=== PATIENT | male | born 1940 | race Caucasian/White ===

== ENCOUNTER → 2019-03-22 11:39 | Outpatient (CLI) | payer MEDICARE, OTHER, SELFPAY | PROVIDERS: Visit Provider Physician Assistant | DX: L02.01 Cutaneous abscess of face (principal) | CPT/HCPCS: 87070; 87077; 87147; 87186; 87205 ==

== ENCOUNTER → 2019-05-31 18:21 | Outpatient (ROUT) | payer MEDICARE, OTHER, SELFPAY | PROVIDERS: Visit Provider Internal Medicine | DX: L73.8 Other specified follicular disorders (principal) | CPT/HCPCS: 87070; 87075; 87077; 87147; 87186; 87205 ==

== ENCOUNTER → 2019-11-07 07:14 | Outpatient (CLI) | payer MEDICARE, OTHER, SELFPAY ==
[2019-11-07 07:50] LABS: Add Manual Diff / Slide Review NO; Basophils Absolute Auto 0 /uL (0-100); Basophils Percent Auto 0.8 % (0-2); Eosinophils Absolute Auto 200 /uL (0-450); Eosinophils Percent Auto 3.2 % (2-4); Hematocrit 44.9 % (41-53); Hemoglobin 15.3 g/dL (13.5-17.5); Lymphocytes Absolute Auto 1900 /uL (1100-4500); Lymphocytes Percent Auto 37.2 % (25-40); Mean Corpuscular HGB Conc 34.1 % (30-36); Mean Corpuscular Hemoglobin 34.2 PG (26-34); Mean Corpuscular Volume 100.3 fL (80-100); Monocytes Absolute Auto 600 /uL (0-900); Monocytes Percent Auto 10.6 % (3-14); Neutrophils Absolute Auto 2500 /uL (1500-7000); Neutrophils Percent Auto 48.2 % (50-75); Platelet Count 215 X10^3/uL (150-400); Red Blood Cell Count 4.47 X10^6/uL (4.5-5.9); Red Cell Distribution Width 14.2 % (11.6-14.8); White Blood Cell Count 5.2 X10^3/uL (4.5-11.0)
[2019-11-07 08:25] LABS: Alanine Aminotransferase 33 IU/L (<50); Albumin 4.2 g/dL (3.5-5.0); Albumin Globulin Ratio 1.4 (1.0-2.8); Alkaline Phosphatase 73 U/L (38-126); Aspartate Aminotransferase 40 IU/L (17-59); BUN Creatinine Ratio 15.8 (6-22); Bilirubin Total 0.7 mg/dL (0.2-1.3); Blood Urea Nitrogen 19 mg/dL (9-20); Calcium 9.7 mg/dL (8.4-10.2); Carbon Dioxide 26 mmol/L (22-32); Chloride 104 mmol/L (98-107); Cholesterol 206 mg/dL (140-199); Estimated Glomerular Filt Rate 58.3 mL/min (>60); Glucose 111 mg/dL (80-110); HDL Cholesterol 52 mg/dL (40-60); HEMOLYSIS < 15 (0-50); LDL Cholesterol Calculated 125 mg/dL (<100); Potassium 4.6 mmol/L (3.4-5.1); Sodium 141 mmol/L (137-145); Total Protein 7.2 g/dL (6.3-8.2); Triglycerides 143 mg/dL (35-150)
[2019-11-07 08:43] LABS: Appearance Urine UA CLEAR; Bilirubin Urine UA NEGATIVE (NEGATIVE); Color Urine UA YELLOW; Glucose Urine UA NEGATIVE (Negative); Ketones Urine UA NEGATIVE (NEGATIVE); Leukocyte Esterase Urine UA NEGATIVE (NEGATIVE); Nitrite Urine UA NEGATIVE (Negative); Occult Blood Urine UA NEGATIVE (Negative); Protein Urine UA NEGATIVE (Negative); Specific Gravity Urine UA 1.025 (1.000-1.035); Urobilinogen Urine UA 0.2 E.U./dL (0.2); pH Urine UA 5.5 (4.5-8.0)
[2019-11-07 08:51] LABS: Bacteria Urine Occasional (0-1); Mucus Urine 1+ (Negative); RBC Urine 0-1/HPF (0-5/HPF); WBC Urine 0-1/HPF (0-5/HPF)
[2019-11-07 08:53] LABS: Thyroid Stimulating Hormone 3.73 uIU/mL (0.47-4.68)
== END ==
PROVIDERS: PCP Internal Medicine; Referring Provider Internal Medicine; Visit Provider Internal Medicine
DX: Z00.00 Encounter for general adult medical examination without abnormal findings (principal); L73.8 Other specified follicular disorders; L02.91 Cutaneous abscess, unspecified; E78.5 Hyperlipidemia, unspecified; R53.81 Other malaise
CPT/HCPCS: 36415; 80053; 80061; 81001; 84443; 85025

== ENCOUNTER → 2020-05-21 11:12 | Outpatient (CLI) | payer MEDICARE, OTHER, SELFPAY ==
[2020-05-21 12:38] LABS: BUN Creatinine Ratio 18.6 (6-22); Blood Urea Nitrogen 22 mg/dL (9-20); Calcium 9.7 mg/dL (8.4-10.2); Carbon Dioxide 29 mmol/L (22-32); Chloride 101 mmol/L (98-107); Estimated Glomerular Filt Rate 59.2 mL/min (>60); Glucose 92 mg/dL (80-110); HEMOLYSIS < 15 (0-50); Potassium 5.2 mmol/L (3.4-5.1); Sodium 137 mmol/L (137-145)
== END ==
PROVIDERS: PCP Internal Medicine; Referring Provider Internal Medicine; Visit Provider Internal Medicine
DX: H61.23 Impacted cerumen, bilateral (principal)
CPT/HCPCS: 36415; 80048

== ENCOUNTER 2022-09-17 11:04 | Emergency (ER) | payer MEDICARE, OTHER, SELFPAY ==
[2022-09-17] VITALS (16 sets, daily range): BP systolic 122–184; BP diastolic 67–92; PULSE 53–77; RESP 14; TEMP 36.3; O2SAT 94–99; BMI 24.3
--- NOTE | 2022-09-17 11:24 | DI.RAD.S_ITS ---
PROCEDURE: XR CHEST 1V INDICATIONS: Possible stroke TECHNIQUE: One view of the chest was acquired. COMPARISON: None. FINDINGS: Surgical changes and devices: None. Lungs and pleura: Lungs are clear. No pleural effusions or pneumothorax. Mediastinum: Mediastinal contours appear normal. Heart size is normal. Bones and chest wall: No suspicious bony lesions. Overlying soft tissues appear unremarkable. IMPRESSION: No acute pulmonary process. Dictated by: Em Oliver M.D. on 09/17/2022 at 12:07 Approved by: Em Oliver M.D. on 09/17/2022 at 12:08
--- NOTE | 2022-09-17 11:24 | DI.CT.S_ITS ---
PROCEDURE: CT HEAD/BRAIN WO CON INDICATIONS: Right leg weakness TECHNIQUE: Noncontrast 4.5 mm thick angled axial sections acquired from the foramen magnum to the vertex, with coronal and sagittal reformats. For radiation dose reduction, the following was used: automated exposure control, adjustment of mA and/or kV according to patient size. COMPARISON: None. FINDINGS: Image quality: Excellent. CSF spaces: Basal cisterns are patent. No extra-axial fluid collections. The ventricles are symmetric in size and shape. Brain: No intracranial bleeds or masses. There is cerebral volume loss for age, with resultant ventricular and sulcal prominence. There are periventricular and deep white matter chronic small vessel ischemic changes. There is intracranial internal carotid artery atherosclerosis. Skull and face: Calvarium and visualized facial bones appear intact, without suspicious lesions. Sinuses: Visualized sinuses and mastoids are clear. IMPRESSION: 1. No acute intracranial process. 2. Moderate atrophy and chronic microvascular ischemic changes. Dictated by: Em Oliver M.D. on 09/17/2022 at 12:11 Approved by: Em Oliver M.D. on 09/17/2022 at 12:12
--- NOTE | 2022-09-17 11:24 | DI.CT.S_ITS ---
PROCEDURE: CT ANGIO HEAD AND NECK INDICATIONS: Right leg weakness TECHNIQUE: Noncontrast images were performed earlier in the day and not repeated. After the administration of intravenous contrast, 1 mm thick sections acquired from the aortic arch through the [place] of [place]. Post-contrast 4.5 mm thick sections then re-acquired from the foramen magnum to the vertex. 3-dimensional [id number]-keubhbzoa-ihbonriqqp (MIP) and/or volume rendering reformats were acquired of the central intracranial vasculature and neck separately. For radiation dose reduction, the following was used: automated exposure control, adjustment of mA and/or kV according to patient size. COMPARISON: [facility], CT, CT HEAD/BRAIN WO CON, 09/17/2022, 11:49. FINDINGS: Image quality: Excellent. BRAIN: CSF spaces: Ventricles are normal in size and shape. Basal cisterns are patent. No extra-axial fluid collections. Brain: No midline shift. No intracranial bleeds or masses. Rubio-white matter interface appears intact. Skull and face: Calvarium and facial bones appear intact, without suspicious lesions. Orbits appear normal. Sinuses: Sinuses and mastoids are clear. HEAD CT ANGIOGRAPHY: Anterior circulation: Intracranial internal carotid arteries are normal in size and flow. The flow within the paired anterior cerebral arteries is normal and symmetric. The flow within the middle cerebral arteries is normal and symmetric. The anterior communicating artery is seen. No aneurysms are seen. Posterior circulation: The distal right V4 segment largely terminates in the right posterior inferior cerebellar artery. The left V4 segment is within normal limits. There is a normal appearing basilar artery. Flow within the posterior cerebral arteries is normal and symmetric. No aneurysms are seen. NECK CT ANGIOGRAPHY: Carotid system: The great vessels demonstrate a conventional anatomy as they arise from the aortic arch. The origins of the common carotid arteries appear patent. The common carotid arteries demonstrate normal caliber and courses. The bifurcation regions are both widely patent. The internal carotid arteries demonstrate normal calibers and courses. Posterior circulation: The origins of the vertebral arteries both appear widely patent. The more superior extracranial portions of both vertebral arteries also demonstrate normal courses and calibers. The left vertebral artery is dominant to the right. Soft tissues: Visualized neck soft tissues demonstrate no suspicious abnormalities. A 4.7 cm low-density lesion is seen within the right thyroid. Bones: No suspicious bony lesions. Visualized cervical spine appears normally aligned. At least moderate cervical spine degenerative change can be seen. IMPRESSION: No significant intracranial arterial abnormality is seen. Within the arteries of the neck, no hemodynamically significant stenosis can be seen. 4.7 cm low-density lesion involving the right thyroid. If clinically appropriate, please consider a follow-up dedicated thyroid ultrasound for further evaluation. Additional findings: At least moderate cervical spine degenerative change Left vertebral artery dominant to the right Any quantitative measurements of stenosis were performed using NASCET criteria. Dictated by: Art Smith M.D. on 09/17/2022 at 11:15 Approved by: Art Smith M.D. on 09/17/2022 at 11:18
--- NOTE | 2022-09-17 11:26 | DI.RAD.S_ITS ---
PROCEDURE: XR TOE RT MIN 2V INDICATIONS: fall, pain, deformity TECHNIQUE: 3 views of the 2nd toe(s) acquired. COMPARISON: None. FINDINGS: Bones: 2nd PIP joint dislocation. No suspicious bony lesions. Soft tissues: No suspicious soft tissue densities. IMPRESSION: There is dislocation at the 2nd PIP joint. No gross fracture. Dictated by: Em Oliver M.D. on 09/17/2022 at 12:05 Approved by: Em Oliver M.D. on 09/17/2022 at 12:07
[2022-09-17 12:01] LABS: Add Manual Diff / Slide Review NO; Basophils Absolute Auto 0 /uL (0-100); Basophils Percent Auto 0.5 % (0-2); Eosinophils Absolute Auto 0 /uL (0-450); Eosinophils Percent Auto 0.4 % (2-4); Hematocrit 44.6 % (41-53); Hemoglobin 14.9 g/dL (13.5-17.5); Lymphocytes Absolute Auto 900 /uL (1100-4500); Lymphocytes Percent Auto 13.1 % (25-40); Mean Corpuscular HGB Conc 33.5 % (30-36); Mean Corpuscular Hemoglobin 33.1 PG (26-34); Mean Corpuscular Volume 98.9 fL (80-100); Monocytes Absolute Auto 300 /uL (0-900); Monocytes Percent Auto 4.4 % (3-14); Neutrophils Absolute Auto 5600 /uL (1500-7000); Neutrophils Percent Auto 81.6 % (50-75); Platelet Count 222 X10^3/uL (150-400); Red Blood Cell Count 4.51 X10^6/uL (4.5-5.9); Red Cell Distribution Width 13.7 % (11.6-14.8); White Blood Cell Count 6.9 X10^3/uL (4.5-11.0)
[2022-09-17 12:06] LABS: INR 1.1 (0.9-1.3); Prothrombin Time 12.8 SECONDS (10.1-12.7)
[2022-09-17 12:09] LABS: PTT Partial Thromboplastin Tim 31 SECONDS (26-36)
[2022-09-17 12:14] LABS: Alanine Aminotransferase 30 IU/L (<50); Albumin 4.6 g/dL (3.5-5.0); Albumin Globulin Ratio 1.3 (1.0-2.8); Alkaline Phosphatase 80 U/L (38-126); Aspartate Aminotransferase 36 IU/L (17-59); Bilirubin Total 0.8 mg/dL (0.2-1.3); Blood Urea Nitrogen 15 mg/dL (9-20); Calcium 9.3 mg/dL (8.4-10.2); Carbon Dioxide 26 mmol/L (22-32); Chloride 103 mmol/L (98-107); Creatine Kinase 181 U/L (55-170); Estimated Glomerular Filt Rate > 60 mL/min (>60); Globulin 3.5 g/dL (1.7-4.1); Glucose 106 mg/dL (80-110); HEMOLYSIS < 15 (0-50); Potassium 4.1 mmol/L (3.4-5.1); Sodium 137 mmol/L (137-145); Total Protein 8.1 g/dL (6.3-8.2)
[2022-09-17 12:16] LABS: COVID19 -Nasal RAPID Negative (Negative)
[2022-09-17 12:25] LABS: Troponin I < 0.012 ng/mL (0.01-0.034)
[2022-09-17 12:29] LABS: CKMB % Relative Index 1.1 % (1.5-5.0); Creatine Kinase MB 2.01 ng/mL (<2.37)
[2022-09-17 14:15] LABS: UR Morphine/Opiate cutoff 300 Negative (Negative); Ur Creatinine Normal (Normal); Ur Specific Gravity Normal (Normal); Urine Amphetamines Negative (Negative); Urine Barbiturates Negative (Negative); Urine Benzodiazepines Negative (Negative); Urine Cocaine Negative (Negative); Urine MDMA Negative (Negative); Urine Methadone Negative (Negative); Urine Methamphetamines Negative (Negative); Urine Oxycodone Negative (Negative); Urine Phencyclidine Negative (Negative); Urine Tetrahydrocannabinol Negative (Negative); Urine Tricyclic Antidepressant Negative (Negative); Urine pH Normal (Normal)
--- NOTE | 2022-09-17 14:24 | ED_ITS ---
HPI - Neuro Symptoms/Deficit General Chief Complaint: Neuro Symptoms/Deficit Stated Complaint: sent by [facility] RT leg wont hold weight Time Seen by Provider: 09/17/22 12:24 Source: patient Mode of arrival: Ambulatory History of Present Illness HPI Narrative: Patient is a healthy 82-year-old male who exercises daily presenting today with right leg weakness. He says he went for a 3 mi walk yesterday by yesterday afternoon he started having some right hip and buttock pain. He went to sleep and last night he got up to go to the restroom when he fell and he said his right leg just completely gave out. He says this has happened to him a couple of times in his life if feel similar. No slurring of speech no facial droop no numbness tingling or weakness in any other extremities. He has significant right leg weakness. No chest pain palpitations fever chills or any other symptoms. Denies any urinary incontinence or stool incontinence. When he fell last night he really hurt his right 2nd toe. On Anticoagulants: No Related Data Previous Rx's Medication Instructions Recorded hydrocodone 5 mg-acetaminophen 325 1 tab PO Q6H PRN pain #15 tabs 09/17/22 mg tablet prednisone 20 mg tablet 20 mg PO DAILY #5 tabs 09/17/22 Allergies Allergy/AdvReac Type Severity Reaction Status Date / Time No Known Drug Allergies Allergy Verified 09/17/22 11:31 Review of Systems Hematologic/Lymphatic On Anticoagulants: No Patient History Social History Smoking Status: Never smoker Smoking Status: Never smoker Substance Use Type: does not use Exam Initial Vital Signs Initial Vital Signs: Vital Signs Temperature 97.4 F L 09/17/22 11:17 Pulse Rate 70 09/17/22 11:17 Respiratory Rate 14 09/17/22 11:17 Blood Pressure 122/71 09/17/22 11:17 Pulse Oximetry 99 09/17/22 11:17 Oxygen Delivery Method 09/17/22 11:17 GENERAL: Alert pleasant well-appearing 82-year-old male and in no acute distress. HEENT: Head atraumatic,EOMI, pupils reactive, face symmetric, moist mucous membranes CARDIOVASCULAR: Regular rate and rhythm without murmurs, rubs or gallops. RESPIRATORY: Breath sounds equal bilaterally, no wheezes rales or rhonchi. ABDOMEN: Soft, nontender. Normoactive bowel sounds all 4 quadrants. No guarding or rebound. EXTREMITIES: Normal range of motion, no clubbing or edema. Neurovascularly intact NEUROLOGICAL: Alert and oriented x4.Normal gait and speech. Cranial nerves II through XII grossly intact. Good iaoesh-bt-bcfm, good arop-tc-npni, right leg weakness drift to gurney, no dysarthria or aphasia, sensation in tact to soft touch bilaterally, no visual changes, no facial droop SKIN: Warm, dry, no laceration, no petechiae, no rashes or lesions. Procedures Orthopedic Joint Reduction Joint #1: Joint Reduction Location: toe Analgesia: none Technique used: direct manipulation Post-reduction neuro exam: intact Post-reduction vascular: intact Patient Tolerated Procedure: Well and No complications Scores NIH Stroke Scale Level of Conciousness: Alert, keenly responsive Ask month/age: Answers both questions correctly. Open/close eyes, close hand: Performs both tasks correctly Best gaze horizontal: Normal Visual mojica: No visual loss Facial palsy: Normal symetrical movement Left arm drift: No drift for full 10 sec Right arm drift: No drift for full 10 sec Left leg drift: No drift for full 5 sec Right leg drift: Drifts down, not to bed Limb ataxia: Absent Sensory on face/arms/legs: Normal, no sensory loss Best language: No aphasia, normal Dysarthria: Normal Extinction or inattention: No abnormality Total NIH Stroke scale score: 1 Course Orders Ordered: Discontinued Medications Dexamethasone (Dexamethasone 10 Mg/Ml Vial) 6 mg IV NOW ONE Stop: 09/17/22 18:12 Last Admin: 09/17/22 18:26 Dose: 6 mg Documented By: JAVIER Morphine Sulfate (Morphine 2 Mg/Ml Inj) 2 mg IV NOW ONE Stop: 09/17/22 18:10 Last Admin: 09/17/22 18:31 Dose: 2 mg Documented By: JAVIER Ondansetron HCl (Ondansetron 4 Mg/2 Ml Inj) 4 mg IV NOW PRN PRN Reason: Nausea And Vomiting Vital Signs Vital signs: Vital Signs - 8 hr 09/17/22 13:52 09/17/22 13:52 09/17/22 14:00 Pulse Rate 64 Blood Pressure 170/78 H 169/67 H Pulse Oximetry 96 Oxygen Delivery Method Room Air 09/17/22 14:00 09/17/22 14:30 09/17/22 15:35 Pulse Rate 77 70 Blood Pressure 162/82 H Pulse Oximetry 98 94 Oxygen Delivery Method Room Air Room Air 09/17/22 15:35 09/17/22 16:00 09/17/22 16:01 Pulse Rate 70 65 Blood Pressure 128/73 Pulse Oximetry 97 95 Oxygen Delivery Method Room Air Room Air 09/17/22 16:01 09/17/22 16:30 09/17/22 18:07 Pulse Rate 65 68 Blood Pressure Pulse Oximetry 95 94 99 Oxygen Delivery Method Room Air Room Air Room Air 09/17/22 18:08 09/17/22 18:10 09/17/22 18:36 Pulse Rate Blood Pressure 159/92 H Pulse Oximetry 98 97 Oxygen Delivery Method Room Air Room Air 09/17/22 19:00 09/17/22 19:30 09/17/22 20:00 Pulse Rate 53 L 58 L 59 L Blood Pressure Pulse Oximetry 97 94 94 Oxygen Delivery Method Room Air Room Air Room Air 09/17/22 20:15 09/17/22 20:15 Pulse Rate 61 Blood Pressure 184/89 H Pulse Oximetry 97 Oxygen Delivery Method Room Air MDM - Neuro Symptoms/Deficit Lab Data Result diagrams: 09/17/22 11:36 09/17/22 11:36 Labs: Lab Results 09/17/22 09/17/22 09/17/22 Range/Units 11:36 11:36 11:36 WBC 6.9 (4.5-11.0) X10^3/uL RBC 4.51 (4.5-5.9) X10^6/uL Hgb 14.9 (13.5-17.5) g/dL Hct 44.6 (41-53) % MCV 98.9 (80-100) fL MCH 33.1 (26-34) PG MCHC 33.5 (30-36) % RDW 13.7 (11.6-14.8) % Plt Count 222 (150-400) X10^3/uL Neut % (Auto) 81.6 H (50-75) % Lymph % (Auto) 13.1 L (25-40) % [place] % (Auto) 4.4 (3-14) % Eos % (Auto) 0.4 L (2-4) % Baso % (Auto) 0.5 (0-2) % Neut # (Auto) 5600 (3385-0233) /uL Lymph # (Auto) 900 L (6189-8563) /uL [place] # (Auto) 300 (0-900) /uL Eos # (Auto) 0 (0-450) /uL Baso # (Auto) 0 (0-100) /uL PT 12.8 H (10.1-12.7) SECONDS INR 1.1 (0.9-1.3) APTT 31 (26-36) SECONDS Sodium 137 (137-145) mmol/L Potassium 4.1 (3.4-5.1) mmol/L Chloride 103 (98-107) mmol/L Carbon Dioxide 26 (22-32) mmol/L BUN 15 (9-20) mg/dL Creatinine 1.00 (0.66-1.25) mg/dL Estimated GFR > 60 (>60) mL/min BUN/Creatinine Ratio 15.0 (6-22) Glucose 106 (80-110) mg/dL Calcium 9.3 (8.4-10.2) mg/dL Magnesium 2.0 (1.6-2.3) mg/dL Total Bilirubin 0.8 (0.2-1.3) mg/dL AST 36 (17-59) IU/L ALT 30 (<50) IU/L Alkaline Phosphatase 80 (38-126) U/L Total Creatine Kinase 181 H (55-170) U/L CK-MB (CK-2) 2.01 (<2.37) ng/mL CK-MB (CK-2) Rel Index 1.1 L (1.5-5.0) % Troponin I < 0.012 (0.01-0.034) ng/mL Total Protein 8.1 (6.3-8.2) g/dL Albumin 4.6 (3.5-5.0) g/dL Globulin 3.5 (1.7-4.1) g/dL Albumin/Globulin Ratio 1.3 (1.0-2.8) U Opiates 300ng/mL cut (Negative) Ur Oxycodone Screen (Negative) Urine Methadone Screen (Negative) Ur Barbiturates Screen (Negative) U Tricyclic Antidepress (Negative) Ur Phencyclidine Scrn (Negative) Ur Amphetamines Screen (Negative) U Methamphetamines Scrn (Negative) Ur MDMA Scrn (Ecstasy) (Negative) U Benzodiazepines Scrn (Negative) Urine Cocaine Screen (Negative) U Marijuana (THC) Screen (Negative) SARS-CoV-2 (PCR) (Negative) 09/17/22 09/17/22 Range/Units 11:36 13:55 WBC (4.5-11.0) X10^3/uL RBC (4.5-5.9) X10^6/uL Hgb (13.5-17.5) g/dL Hct (41-53) % MCV (80-100) fL MCH (26-34) PG MCHC (30-36) % RDW (11.6-14.8) % Plt Count (150-400) X10^3/uL Neut % (Auto) (50-75) % Lymph % (Auto) (25-40) % [place] % (Auto) (3-14) % Eos % (Auto) (2-4) % Baso % (Auto) (0-2) % Neut # (Auto) (6150-0007) /uL Lymph # (Auto) (7675-0374) /uL [place] # (Auto) (0-900) /uL Eos # (Auto) (0-450) /uL Baso # (Auto) (0-100) /uL PT (10.1-12.7) SECONDS INR (0.9-1.3) APTT (26-36) SECONDS Sodium (137-145) mmol/L Potassium (3.4-5.1) mmol/L Chloride (98-107) mmol/L Carbon Dioxide (22-32) mmol/L BUN (9-20) mg/dL Creatinine (0.66-1.25) mg/dL Estimated GFR (>60) mL/min BUN/Creatinine Ratio (6-22) Glucose (80-110) mg/dL Calcium (8.4-10.2) mg/dL Magnesium (1.6-2.3) mg/dL Total Bilirubin (0.2-1.3) mg/dL AST (17-59) IU/L ALT (<50) IU/L Alkaline Phosphatase (38-126) U/L Total Creatine Kinase (55-170) U/L CK-MB (CK-2) (<2.37) ng/mL CK-MB (CK-2) Rel Index (1.5-5.0) % Troponin I (0.01-0.034) ng/mL Total Protein (6.3-8.2) g/dL Albumin (3.5-5.0) g/dL Globulin (1.7-4.1) g/dL Albumin/Globulin Ratio (1.0-2.8) U Opiates 300ng/mL cut Negative (Negative) Ur Oxycodone Screen Negative (Negative) Urine Methadone Screen Negative (Negative) Ur Barbiturates Screen Negative (Negative) U Tricyclic Antidepress Negative (Negative) Ur Phencyclidine Scrn Negative (Negative) Ur Amphetamines Screen Negative (Negative) U Methamphetamines Scrn Negative (Negative) Ur MDMA Scrn (Ecstasy) Negative (Negative) U Benzodiazepines Scrn Negative (Negative) Urine Cocaine Screen Negative (Negative) U Marijuana (THC) Screen Negative (Negative) SARS-CoV-2 (PCR) Negative (Negative) Urine Dip Bedside Urine Glucose Negative Bedside Urine Bilirubin - Negative Bedside Urine Ketone - Negative Urine Specific [place] 1.010 Bedside Urine Occult Blood - Negative Bedside Urine pH 6.0 Bedside Urine Protein - Negative Bedside Urine Urobilinogen - Negative Bedside Urine Nitrite - Negative Bedside Urine Leukocytes - Negative Esterase Imaging Data CT scan - head: Radiologist's Impression: CT Scan Report Signed Patient: Sanford Arcos MR#: [id number] : 1940 Acct:[id number] Age/Sex: 82 / M Date of Service: 09/17/22 Loc: ED Accession Number: [id number] ?? Procedure: CT head/brain wo con Ordering Provider: Jennifer Mc D.O. PROCEDURE:? CT HEAD/BRAIN WO CON ? INDICATIONS:? Right leg weakness ? TECHNIQUE:? Noncontrast 4.5 mm thick angled axial sections acquired from the foramen magnum to the vertex, with coronal and sagittal reformats.? For radiation dose reduction, the following was used:? automated exposure control, adjustment of mA and/or kV according to patient size.? ? COMPARISON:? None. ? FINDINGS:? Image quality:? Excellent.? ? CSF spaces:? Basal cisterns are patent.? No extra-axial fluid collections.? The ventricles are symmetric in size and shape.? ? Brain:? No intracranial bleeds or masses.? There is cerebral volume loss for age, with resultant ventricular and sulcal prominence.? There are periventricular and deep white matter chronic small vessel ischemic changes.? There is intracranial internal carotid artery atherosclerosis.? ? Skull and face:? Calvarium and visualized facial bones appear intact, without suspicious lesions.? ? Sinuses:? Visualized sinuses and mastoids are clear.? ? IMPRESSION:? ? 1. No acute intracranial process. ? 2. Moderate atrophy and chronic microvascular ischemic changes. ? ? ? Dictated by: Em Oliver M.D. on 09/17/2022 at 12:11 ? ? CTA - brain/neck: Radiologist's Impression: CT Scan Report Signed Patient: Sanford Arcos MR#: [id number] : 1940 Acct:[id number] Age/Sex: 82 / M Date of Service: 09/17/22 Loc: ED Accession Number: [id number] ?? Procedure: CT angio head and neck Ordering Provider: Jennifer Mc D.O. PROCEDURE:? CT ANGIO HEAD AND NECK ? INDICATIONS:? Right leg weakness ? TECHNIQUE:? Noncontrast images were performed earlier in the day and not repeated.? ? After the administration of intravenous contrast, 1 mm thick sections acquired from the aortic arch through the [place] of [place].? Post-contrast 4.5 mm thick sections then re- acquired from the foramen magnum to the vertex.? 3-dimensional vmarnwa-lcjlzcghq-dwbhqjozkn (MIP) and/or volume rendering reformats were acquired of the central intracranial vasculature and neck separately. For radiation dose reduction, the following was used:? automated exposure control, adjustment of mA and/or kV according to patient size.? ? COMPARISON:? [facility], CT, CT HEAD/BRAIN WO CON, 09/17/2022, 11:49. ? FINDINGS:? Image quality:? Excellent.? ? BRAIN:? CSF spaces:? Ventricles are normal in size and shape.? Basal cisterns are rai nt.? No extra-axial fluid collections.? ? Brain:? No midline shift.? No intracranial bleeds or masses.? Rubio-white matter interface appears intact.? ? Skull and face:? Calvarium and facial bones appear intact, without suspicious lesions.? Orbits appear normal.? ? Sinuses:? Sinuses and mastoids are clear.? ? HEAD CT ANGIOGRAPHY:? Anterior circulation:? Intracranial internal carotid arteries are normal in size and flow.? The flow within the paired anterior cerebral arteries is normal and symmetric.? The flow within the middle cerebral arteries is normal and symmetric.? The anterior communicating artery is seen.? No aneurysms are seen.? ? Posterior circulation:? The distal right V4 segment largely terminates in the right posterior inferior cerebellar artery.? The left V4 segment is within normal limits.? There is a normal appearing basilar artery.? Flow within the posterior cerebral arteries is normal and symmetric.? No aneurysms are seen.? ? NECK CT ANGIOGRAPHY:? Carotid system:? The great vessels demonstrate a conventional anatomy as they arise from the aortic arch.? The origins of the common carotid arteries appear patent.? The common carotid arteries demonstrate normal caliber and courses.? The bifurcation regions are both widely patent.? The internal carotid arteries demonstrate normal calibers and courses.? ? Posterior circulation:? The origins of the vertebral arteries both appear widely patent.? The more superior extracranial portions of both vertebral arteries also demo nstrate normal courses and calibers.? The left vertebral artery is dominant to the right. ? Soft tissues:? Visualized neck soft tissues demonstrate no suspicious abnormalities.? A 4.7 cm low-density lesion is seen within the right thyroid. ? Bones:? No suspicious bony lesions.? Visualized cervical spine appears normally aligned.? At least moderate cervical spine degenerative change can be seen. ? ? IMPRESSION:? No significant intracranial arterial abnormality is seen.? ? Within the arteries of the neck, no hemodynamically significant stenosis can be seen. ? ? 4.7 cm low-density lesion involving the right thyroid.? If clinically appropriate, please consider a follow-up dedicated thyroid ultrasound for further evaluation.? Additional findings:? At least moderate cervical spine degenerative change Left vertebral artery dominant to the right ? Any quantitative measurements of stenosis were performed using NASCET criteria.? ? ? Dictated by: Art Smith M.D. on 09/17/2022 at 11:15 ? ? LR Lumbar: Radiologist's Impression: DANNI Mckay [id number] Magnetic Resonance Report Signed Patient: Sanford Arcos MR#: [id number] : 1940 Acct:[id number] Age/Sex: 82 / M Date of Service: 09/17/22 Loc: ED Accession Number: [id number] ?? Procedure: MR lumbar spine wo con Ordering Provider: Jennifer Mc D.O. PROCEDURE:? MR LUMBAR SPINE WO CON ? INDICATIONS:? right leg weakness and back pain ? TECHNIQUE:? Noncontrast sagittal T1 spin echo and T2 fast echo, sagittal STIR, and T2 fast spin echo through the lumbar spine.? In cases with scoliosis, additional coronal T2 fast spin echo may be performed.? ? COMPARISON:? [facility], CT, CT HEAD/BRAIN WO CON, 09/17/2022, 11:49.? [facility], CT, CT ANGIO HEAD AND NECK, 09/17/2022, 11:49.? [facility], CR, XR TOE RT MIN 2V, 09/17/2022, 11:33.? [facility], CR, XR CHEST 1V, 09/17/2022, 11:33. ? FINDINGS:? Image quality:? This examination is limited by involuntary motion artifact.? ? Alignment and Curvature:? Mild retrolisthesis is seen at L1-L2.? Minimal re trolisthesis is seen at L2-L3.? There is mild retrolisthesis at L5-S1. ? Bone Marrow:? Marrow is of normal overall signal.? No acute vertebral body compression fractures.? ? Spinal Cord:? Conus medullaris terminates at the L1 level.? Visualized cord demonstrates normal signal and size.? ? Paraspinous Soft Tissues:? No paravertebral masses.? Simple appearing bilateral renal cysts are seen, right larger than left.? A 3.9 cm abdominal aortic aneurysm can be seen. ? T12-L1:? Normal appearance.? ? L1-L2:? Moderate to severe loss of disc height and disc signal can be seen. Bridging endplate osteophytes are seen.? Moderate disc bulge is seen, which is eccentric to the right, with a right foraminal disc protrusion, as on series 5, image 10. There is moderate to severe bilateral neural foraminal narrowing seen, with an associated a degree of compression seen upon the exiting nerve roots. Moderate central canal narrowing is seen. ? ? L2-L3:? Moderate loss of disc height is seen.? Loss of disc signal is seen.? Moderate disc bulge is seen, with a central/right disc extrusion. Moderate facet joint hypertrophy is seen. There is moderate to severe bilateral neural foraminal narrowing seen, with an associated a degree of compression seen upon the exiting nerve roots.? At least moderate central canal narrowing is seen. ? L3-L4:? At least moderate loss of disc height and disc signal can be seen.? At least moderate disc bulge is seen, which is eccentric to the right.? There is a mild superimposed central disc extrusion. ? Moderate facet joint hypertrophy is seen.? There is moderate left-sided neural foraminal narrowing.? There is moderate to severe right-sided neural foraminal narrowing, with a degree of compression upon the exiting right L3 nerve root.? At least moderate central canal narrowing is seen, as on series 5, image 19. ? L4-L5:? Moderate loss of disc height is seen.? Loss of disc signal is seen.? Moderate disc bulge is seen, which is eccentric to the left. There is a mild superimposed central disc extrusion, with inferior migration of the disc material. ? Moderate facet j oint hypertrophy is seen.? There is at least moderate right-sided and moderate to severe left-sided neural foraminal narrowing. There is a degree of compression seen upon the exiting nerve roots.? No significant central canal narrowing is seen. ? L5-S1:? At least moderate loss of disc height and disc signal can be seen.? Moderate disc bulge is seen, which is eccentric to the left. There is a superimposed central disc protrusion. ? Mild to moderate facet hypertrophy is seen. There is moderate to severe bilateral neural foraminal narrowing seen, with an associated a degree of compression seen upon the exiting nerve roots.? No significant central canal narrowing can be seen. ? IMPRESSION:? Multiple levels of relatively prominent lumbar spine degenerative change can be seen. ? Several sites of significant neural foraminal narrowing can be seen, with associated exiting nerve root compression.? ? There is at least moderate central canal narrowing seen at L2-L3 and L3-L4, with moderate central canal narrowing at L1-L2. ? Disc extrusions are seen at L2-L3, L3-L4, and L4-L5. ? Dictated by: Art Smith M.D. on 09/17/2022 at 14:19 ? ? ECG Data Interpretation: Normal sinus rhythm rate 50 p.r. interval 182 QRS [address] changes T- wave inversions no priors to compare MDM Narrative Medical decision making narrative: Patient 82-year-old healthy male who presents with sudden onset of right leg weakness. He says it is slightly painful just gave out on him suddenly. Possible CVA versus cord compression and back injury. He is no other focal deficits but right leg is weak does seem to hurt him. Distal pedal pulses intact. He does have painful slightly dislocated 2nd toe. Blood work is overall reassuring. MRI lumbar spine does show several sites of neural foraminal narrowing only associated existing nerve root compression. And there is at least moderate central canal narrowing seen at L2-L3 and L3-L4, with moderate central canal narrowing at L1-L2. CVA still possible however based on the thigh but patient has had symptoms like this previously and MRI does show canal narrowing at certain locations. Dr. Fiore, ortho on-call here states that with pain and weakness that is acute and MRI finding recommend calling and transferring for possible early cauda equina despite not having any bladder or bowel changes 2000 Dr. Camarena, spine surgery at [facility] has reviewed MRI updated on patient's symptoms and test results states that according to MRI and symptoms patient really does not have any need for emergent surgery. Recommends supportive care and follow-up as needed. Patient is re-evaluated he actually is able to move his right leg a little bit more after steroids and pain medication. At this time his head CT CT angio were negative. I think less likely stroke due to significant pain initially. Now he is having improvement in strength. Spine surgery does not appreciate any sign of cauda equina probable nerve impingement. Patient is quite adamant about going home. I have reduced his 2nd toe which she tolerated quite well. He is given a walker pain medicine and prednisone to go home with. Discharge Plan Departure Patient Disposition: Home Clinical Impression: Sciatica Instructions: Sciatica Activity Restrictions/Additional Instructions: *You have been diagnosed with right leg sciatica *What to do: At this time please use walker so you do not fall. You may need further testing with her primary care provider. *Continue to take medications as directed--> SENT TO [facility] Prednisone 20 mg once a day for 4 days [place] 1 tablet every 6 hours if needed for severe pain *Follow up with your primary care provider in 2-3 days or call [phone] *Return to ER if you should have increasing pain leg weakness loss of urine loss of bowel inability to walk or ambulate or any new, worsening or concerning symptoms CONTROLLED SUBSTANCE DISCHARGE (Narcotoic/benzodiazepine/Flexeril/Phenergan) 1. You have been prescribed narcotic medications, it does have acetaminophen /Tylenol/paracetamol in it, DO NOT TAKE MORE THAN 4,00mg in 24 hours of Tylenol. TRAMADOL DOES NOT CONTAIN TYLENOL 2. Please understand that we cannot provide further refills of narcotics, benzodiazepines or controlled substances through the ED and her pain management will need to be through your provider. 3. While on these medications you cannot drive or operate heavy machinery. 4. You cannot sign legal documents or perform any duties such as this. 5. As long as you're taking opiate pain medications he should also be taking a stool softener such as Colace, Dulcolax, MiraLAX or prune juice, to help avoid constipation. Prescriptions: New hydrocodone-acetaminophen 5-325 mg tablet 1 tab PO Q6H PRN (Reason: pain) Qty: 15 0RF prednisone 20 mg tablet 20 mg PO DAILY Qty: 5 0RF Referrals: Jaye Maria PA-C [Primary Care Provider] - Stand Alone Forms: Patient Portal/API
--- NOTE | 2022-09-17 14:40 | DI.MRI.S_ITS ---
PROCEDURE: MR LUMBAR SPINE WO CON INDICATIONS: right leg weakness and back pain TECHNIQUE: Noncontrast sagittal T1 spin echo and T2 fast echo, sagittal STIR, and T2 fast spin echo through the lumbar spine. In cases with scoliosis, additional coronal T2 fast spin echo may be performed. COMPARISON: [facility], CT, CT HEAD/BRAIN WO CON, 09/17/2022, 11:49. [facility], CT, CT ANGIO HEAD AND NECK, 09/17/2022, 11:49. [facility], CR, XR TOE RT MIN 2V, 09/17/2022, 11:33. [facility], CR, XR CHEST 1V, 09/17/2022, 11:33. FINDINGS: Image quality: This examination is limited by involuntary motion artifact. Alignment and Curvature: Mild retrolisthesis is seen at L1-L2. Minimal retrolisthesis is seen at L2-L3. There is mild retrolisthesis at L5-S1. Bone Marrow: Marrow is of normal overall signal. No acute vertebral body compression fractures. Spinal Cord: Conus medullaris terminates at the L1 level. Visualized cord demonstrates normal signal and size. Paraspinous Soft Tissues: No paravertebral masses. Simple appearing bilateral renal cysts are seen, right larger than left. A 3.9 cm abdominal aortic aneurysm can be seen. T12-L1: Normal appearance. L1-L2: Moderate to severe loss of disc height and disc signal can be seen. Bridging endplate osteophytes are seen. Moderate disc bulge is seen, which is eccentric to the right, with a right foraminal disc protrusion, as on series 5, image 10. There is moderate to severe bilateral neural foraminal narrowing seen, with an associated a degree of compression seen upon the exiting nerve roots. Moderate central canal narrowing is seen. L2-L3: Moderate loss of disc height is seen. Loss of disc signal is seen. Moderate disc bulge is seen, with a central/right disc extrusion. Moderate facet joint hypertrophy is seen. There is moderate to severe bilateral neural foraminal narrowing seen, with an associated a degree of compression seen upon the exiting nerve roots. At least moderate central canal narrowing is seen. L3-L4: At least moderate loss of disc height and disc signal can be seen. At least moderate disc bulge is seen, which is eccentric to the right. There is a mild superimposed central disc extrusion. Moderate facet joint hypertrophy is seen. There is moderate left-sided neural foraminal narrowing. There is moderate to severe right-sided neural foraminal narrowing, with a degree of compression upon the exiting right L3 nerve root. At least moderate central canal narrowing is seen, as on series 5, image 19. L4-L5: Moderate loss of disc height is seen. Loss of disc signal is seen. Moderate disc bulge is seen, which is eccentric to the left. There is a mild superimposed central disc extrusion, with inferior migration of the disc material. Moderate facet joint hypertrophy is seen. There is at least moderate right-sided and moderate to severe left-sided neural foraminal narrowing. There is a degree of compression seen upon the exiting nerve roots. No significant central canal narrowing is seen. L5-S1: At least moderate loss of disc height and disc signal can be seen. Moderate disc bulge is seen, which is eccentric to the left. There is a superimposed central disc protrusion. Mild to moderate facet hypertrophy is seen. There is moderate to severe bilateral neural foraminal narrowing seen, with an associated a degree of compression seen upon the exiting nerve roots. No significant central canal narrowing can be seen. 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 Several sites of significant neural foraminal narrowing can be seen, with associated exiting nerve root compression. There is at least moderate central canal narrowing seen at L2-L3 and L3-L4, with moderate central canal narrowing at L1-L2. Disc extrusions are seen at L2-L3, L3-L4, and L4-L5. Dictated by: Art Smith M.D. on 09/17/2022 at 14:19 Approved by: Art Smith M.D. on 09/17/2022 at 14:24
[2022-09-17] MEDS: DEXAMETHASONE 10 MG/ML VIAL 6 MG IV (18:26)
[2022-09-17] MEDS: MORPHINE 2 MG/ML INJ IV (18:31)
--- NOTE | 2022-09-17 19:39 | PC.NURSE ---
Patient is on the waitlist at [facility]. I placed a call to [facility] to call and put patient on list. Gilda Dickson refused waitlist. I faxed facesheet to [facility] and they will call back to put patient on their list.
== END 2022-09-17 20:45 | disposition home or self-care (01) ==
PROVIDERS: Emergency Provider Emergency Medicine; PCP Physician Assistant
DX: M54.31 Sciatica, right side (principal); S93.114A Dislocation of interphalangeal joint of right lesser toe(s), initial encounter; Z20.822 Contact with and (suspected) exposure to COVID-19; R03.0 Elevated blood-pressure reading, without diagnosis of hypertension
CPT/HCPCS: 28660; 36415; 70450; 70496; 70498; 71045; 72148; 73660; 80053; 80305; 81003; 82550; 82553; 83735; 84484; 85025; 85610; 85730; 87635; 93005; 93010; 96374; 96375; 99284; C9803; J1100; J2270; Q9967

== ENCOUNTER → 2024-12-27 09:34 | Outpatient (CLI) | payer MEDICARE, OTHER, SELFPAY ==
--- NOTE | 2024-12-27 09:36 | DI.RAD.S_ITS ---
PROCEDURE: XR CHEST 2V INDICATIONS: cough x 2 wks productive TECHNIQUE: 2 views of the chest were acquired. COMPARISON: Located [facility], CR, XR CHEST 1V, 09/17/2022, 11:33. FINDINGS: Surgical changes and devices: None. Lungs and pleura: Lungs are clear except for a previously present ovoid focal radiodensity at the lower lateral right chest also present in 2022, likely a granuloma. No pleural effusions or pneumothorax. Mediastinum: Mediastinal contours are normal. Heart size is normal. Bones and chest wall: No suspicious bony abnormalities. Soft tissues appear unremarkable. IMPRESSION: No acute cardiopulmonary abnormality is seen. Presumed old partially calcified granuloma right lower lobe. Dictated by: Bronson Mitchell M.D. on 12/27/2024 at 9:48 Approved by: Bronson Mitchell M.D. on 12/27/2024 at 9:49
== END ==
PROVIDERS: Referring Provider Student in an Organized Health Care Education/Training Program; Visit Provider Student in an Organized Health Care Education/Training Program
DX: R05.8 Other specified cough (principal)
CPT/HCPCS: 71046

== ENCOUNTER 2025-03-08 16:26 | Emergency (ER) | payer MEDICARE, OTHER, SELFPAY ==
[2025-03-08] VITALS (18 sets, daily range): BP systolic 119–162; BP diastolic 58–85; PULSE 62–75; RESP 10–24; TEMP 36.6; O2SAT 84–98; BMI 24.5
--- NOTE | 2025-03-08 16:43 | EKG_ITS ---
[facility] [address] [place] [address] Test Date: 2025-03-08 Pat Name: Sanford Arcos Department: Room: Gender: Male Dental Laboratory Technician: ASHLY : 1940 Requested By: Order Number: [id number] Reading MD: Shen Chowdary MD Measurements Intervals [place] Rate: 63 P: -9 [place]: 182 QRS: -53 QRSD: 88 T: 71 QT: 378 QTc: 386 Interpretive Statements Normal sinus rhythm Left axis deviation Nonspecific ST and T wave abnormality ST Elevation Anterior leads suggest possible transmural ischemia Electronically Signed On 03-09-2025 9:41:09 PDT by Shen Chowdary MD
--- NOTE | 2025-03-08 16:57 | DI.RAD.S_ITS ---
PROCEDURE: XR CHEST 1V INDICATIONS: Chest Pain TECHNIQUE: One view of the chest was acquired. COMPARISON: [facility], CR, XR CHEST 2V, 12/27/2024, 9:34. [facility], CR, XR CHEST 1V, 09/17/2022, 11:33. FINDINGS: Surgical changes and devices: None. Lungs and pleura: Lungs are clear. Stable calcified granuloma at the right lung base. No pleural effusions or pneumothorax. Mediastinum: Mediastinal contours appear normal. Heart size is normal. Bones and chest wall: No suspicious bony lesions. Overlying soft tissues appear unremarkable. IMPRESSION: No acute cardiopulmonary abnormality is seen. Approved by: Elias oMses M.D. on 03/08/2025 at 17:16
[2025-03-08] MEDS: ASPIRIN 81 MG CHEW TAB 324 MG PO (17:01)
[2025-03-08 17:04] LABS: Add Manual Diff / Slide Review NO; Basophils Absolute Auto 100 /uL (0-100); Basophils Percent Auto 0.6 % (0-2); Eosinophils Absolute Auto 100 /uL (0-450); Eosinophils Percent Auto 0.8 % (2-4); Hematocrit 42.2 % (41-53); Hemoglobin 14.4 g/dL (13.5-17.5); Lymphocytes Absolute Auto 1300 /uL (1100-4500); Lymphocytes Percent Auto 13.1 % (25-40); Mean Corpuscular HGB Conc 34.1 % (30-36); Mean Corpuscular Hemoglobin 34.1 PG (26-34); Mean Corpuscular Volume 100.1 fL (80-100); Monocytes Absolute Auto 1000 /uL (0-900); Monocytes Percent Auto 10.4 % (3-14); Neutrophils Absolute Auto 7200 /uL (1500-7000); Neutrophils Percent Auto 75.1 % (50-75); Platelet Count 207 X10^3/uL (150-400); Red Blood Cell Count 4.21 X10^6/uL (4.5-5.9); Red Cell Distribution Width 14.5 % (11.6-14.8); White Blood Cell Count 9.5 X10^3/uL (4.5-11.0)
--- NOTE | 2025-03-08 17:11 | ED.CHESTPAIN ---
HPI - Chest Pain <Cathie Gallardo MD - Last Filed: 03/09/25 18:36> General Chief Complaint: Chest Pain Stated Complaint: Sent by PCP after EKG Time Seen by Provider: 03/08/25 17:01 Source: patient Mode of arrival: Ambulatory History of Present Illness HPI narrative: 85-year-old gentleman who looks remarkably younger than stated age comes in after meeting new primary care physician today and discussing chest pain that occurred 3 days ago. Currently on no medications no significant medical history. He was mowing his lawn 3 days ago and began having central chest pressure and tightness that lasted throughout the day. He took some ibuprofen and assumed that he pulled a muscle. By yesterday still having pain throughout the chest somewhat into the arms no shortness of breath took some more ibuprofen continued to assume that this was musculoskeletal. Today the central his pain has improved however he continues to have a deep ache out into both arms. He has continued to his usual activities, he is not complaining of dyspnea, orthopnea, nausea, there has been no diaphoresis nor palpitations. Had a abnormal EKG in the clinic and sent to the emergency department for further evaluation, he arrives via triage and appears well on arrival Related Data Allergies Allergy/AdvReac Type Severity Reaction Status Date / Time No Known Drug Allergies Allergy Verified 03/08/25 16:58 Review of Systems <Cathie Gallardo MD - Last Filed: 03/09/25 18:36> Review of Systems Narrative: Pertinent positive and negative findings as per HPI Patient History <Cathie Gallardo MD - Last Filed: 03/09/25 18:36> Social History (System 09/20/22 @ 08:14 by Lady Uma Storey) Smoking Status: Smoker, status unknown Smoking Status: Smoker, status unknown Exam <Cathie Gallardo MD - Last Filed: 03/09/25 18:36> Initial Vital Signs Initial Vital Signs: Vital Signs Temperature 98 F 03/08/25 16:45 Pulse Rate 66 03/08/25 16:45 Respiratory Rate 17 03/08/25 16:45 Blood Pressure 153/72 H 03/08/25 16:45 Pulse Oximetry 98 03/08/25 16:45 Oxygen Delivery Method Room Air 03/08/25 16:45 General: Healthy appearing, in no acute distress. Able to give a complete and coherent history. Well-nourished well-developed HEENT: Moist mucous membranes, normal sclera with reactive pupils, Neck: No JVD, supple Respiratory: Lungs are clear to auscultation, no wheezing no rales no rhonchi. Full and symmetrical air movement Cardiac: Regular rate and rhythm no murmurs no bruits, no reproducible chest pain Abdomen: Soft, nontender, no rebound or guarding, no flank pain Skin: Warm and dry, no rashes Neurologic: Grossly neurologically intact with no obvious asymmetries or abnormalities Extremities: No trauma, well perfused Psych: Cooperative, appropriate insight and affect <Shen Rubi DO - Last Filed: 03/08/25 20:43> Initial Vital Signs Initial Vital Signs: Vital Signs Temperature 98 F 03/08/25 16:45 Pulse Rate 66 03/08/25 16:45 Respiratory Rate 17 03/08/25 16:45 Blood Pressure 153/72 H 03/08/25 16:45 Pulse Oximetry 98 03/08/25 16:45 Oxygen Delivery Method Room Air 03/08/25 16:45 Course <Cathie Gallardo MD - Last Filed: 03/09/25 18:36> Orders Ordered: Discontinued Medications Aspirin (Aspirin 81 Mg Chew Tab) 324 mg PO NOW ONE Stop: 03/08/25 16:57 Last Admin: 03/08/25 17:01 Dose: 324 mg Documented By: SHRUTI Clopidogrel Bisulfate (Clopidogrel 75 Mg Tablet) 300 mg PO NOW ONE Stop: 03/08/25 18:35 Last Admin: 03/08/25 19:04 Dose: 300 mg Documented By: SHRUTI Heparin Sodium (Porcine) (Heparin 5,000 Unit/Ml Vial) 5,000 unit IV NOW ONE Stop: 03/08/25 17:37 Last Admin: 03/08/25 17:47 Dose: 5,000 unit Documented By: SHRUTI Heparin Sodium/Dextrose (Heparin Drip) 25,000 unit in 500 mls @ 18.615 mls/hr IV CONT NICHO; Protocol Last Admin: 03/08/25 17:48 Dose: 12 units/kg/hr, 18.615 mls/hr Documented By: SHRUTI Co-signed By: Vital Signs Vital signs: Vital Signs - 8 hr 03/08/25 16:45 03/08/25 16:50 03/08/25 16:51 Temperature 98 F Pulse Rate 66 69 66 Respiratory Rate 17 20 10 L Blood Pressure 153/72 H Pulse Oximetry 98 98 Oxygen Delivery Method Room Air 03/08/25 16:51 03/08/25 17:00 03/08/25 17:00 Temperature Pulse Rate 62 Respiratory Rate 16 Blood Pressure 153/72 H 141/69 H Pulse Oximetry 96 Oxygen Delivery Method 03/08/25 17:30 03/08/25 17:30 03/08/25 18:00 Temperature Pulse Rate 69 Respiratory Rate 20 Blood Pressure 133/73 127/76 Pulse Oximetry 95 Oxygen Delivery Method 03/08/25 18:00 03/08/25 18:30 03/08/25 18:30 Temperature Pulse Rate 71 75 Respiratory Rate 20 22 Blood Pressure 151/78 H Pulse Oximetry 94 96 Oxygen Delivery Method 03/08/25 19:00 03/08/25 19:00 03/08/25 19:30 Temperature Pulse Rate 69 71 Respiratory Rate 23 24 Blood Pressure 147/85 H Pulse Oximetry 95 98 Oxygen Delivery Method 03/08/25 19:30 03/08/25 20:00 03/08/25 20:00 Temperature Pulse Rate 67 Respiratory Rate 16 Blood Pressure 162/82 H 143/67 H Pulse Oximetry 84 L Oxygen Delivery Method <Shen Rubi, DO - Last Filed: 03/08/25 20:43> Orders Ordered: Discontinued Medications Aspirin (Aspirin 81 Mg Chew Tab) 324 mg PO NOW ONE Stop: 03/08/25 16:57 Last Admin: 03/08/25 17:01 Dose: 324 mg Documented By: SHRUTI Clopidogrel Bisulfate (Clopidogrel 75 Mg Tablet) 300 mg PO NOW ONE Stop: 03/08/25 18:35 Last Admin: 03/08/25 19:04 Dose: 300 mg Documented By: SHRUTI Heparin Sodium (Porcine) (Heparin 5,000 Unit/Ml Vial) 5,000 unit IV NOW ONE Stop: 03/08/25 17:37 Last Admin: 03/08/25 17:47 Dose: 5,000 unit Documented By: SHRUTI Heparin Sodium/Dextrose (Heparin Drip) 25,000 unit in 500 mls @ 18.615 mls/hr IV CONT NICHO; Protocol Last Admin: 03/08/25 17:48 Dose: 12 units/kg/hr, 18.615 mls/hr Documented By: SHRUTI Co-signed By: Vital Signs Vital signs: Vital Signs - 8 hr 03/08/25 16:45 03/08/25 16:50 03/08/25 16:51 Temperature 98 F Pulse Rate 66 69 66 Respiratory Rate 17 20 10 L Blood Pressure 153/72 H Pulse Oximetry 98 98 Oxygen Delivery Method Room Air 03/08/25 16:51 03/08/25 17:00 03/08/25 17:00 Temperature Pulse Rate 62 Respiratory Rate 16 Blood Pressure 153/72 H 141/69 H Pulse Oximetry 96 Oxygen Delivery Method 03/08/25 17:30 03/08/25 17:30 03/08/25 18:00 Temperature Pulse Rate 69 Respiratory Rate 20 Blood Pressure 133/73 127/76 Pulse Oximetry 95 Oxygen Delivery Method 03/08/25 18:00 03/08/25 18:30 03/08/25 18:30 Temperature Pulse Rate 71 75 Respiratory Rate 20 22 Blood Pressure 151/78 H Pulse Oximetry 94 96 Oxygen Delivery Method 03/08/25 19:00 03/08/25 19:00 03/08/25 19:30 Temperature Pulse Rate 69 71 Respiratory Rate 23 24 Blood Pressure 147/85 H Pulse Oximetry 95 98 Oxygen Delivery Method 03/08/25 19:30 03/08/25 20:00 03/08/25 20:00 Temperature Pulse Rate 67 Respiratory Rate 16 Blood Pressure 162/82 H 143/67 H Pulse Oximetry 84 L Oxygen Delivery Method MDM - Chest Pain <Cathie Gallardo MD - Last Filed: 03/09/25 18:36> Lab Data 03/08/25 16:53 03/08/25 16:53 Labs: Lab Results 03/08/25 03/08/25 03/09/25 Range/Units 16:53 18:23 00:00 WBC 9.5 (4.5-11.0) X10^3/uL RBC 4.21 L (4.5-5.9) X10^6/uL Hgb 14.4 (13.5-17.5) g/dL Hct 42.2 (41-53) % MCV 100.1 H (80-100) fL MCH 34.1 H (26-34) PG MCHC 34.1 (30-36) % RDW 14.5 (11.6-14.8) % Plt Count 207 (150-400) X10^3/uL Neut % (Auto) 75.1 H (50-75) % Lymph % (Auto) 13.1 L (25-40) % [place] % (Auto) 10.4 (3-14) % Eos % (Auto) 0.8 L (2-4) % Baso % (Auto) 0.6 (0-2) % Neut # (Auto) 7200 H (5697-6692) /uL Lymph # (Auto) 1300 (8161-9899) /uL [place] # (Auto) 1000 H (0-900) /uL Eos # (Auto) 100 (0-450) /uL Baso # (Auto) 100 (0-100) /uL PT 12.0 (9.4-12.5) SECONDS INR 1.1 (0.9-1.3) APTT 30 69 H D (25.1-36.5) SECONDS Sodium 137 (137-145) mmol/L Potassium 4.1 (3.4-5.1) mmol/L Chloride 102 (98-107) mmol/L Carbon Dioxide 27 (22-32) mmol/L BUN 20 (9-20) mg/dL Creatinine 1.27 H (0.66-1.25) mg/dL Estimated GFR 55 L (>60) mL/min BUN/Creatinine Ratio 15.7 (6-22) Glucose 119 H (70-99) mg/dL Calcium 9.4 (8.4-10.2) mg/dL Magnesium 2.0 (1.6-2.3) mg/dL Total Bilirubin 0.7 (0.2-1.3) mg/dL AST 146 H (17-59) IU/L ALT 42 (<50) IU/L Alkaline Phosphatase 79 (38-126) U/L Total Creatine Kinase 803 H (55-170) U/L Troponin I 9.070 H* 9.160 H* (0.01-0.034) ng/mL NT-Pro-B Natriuret Pep 4230 H (<450) pg/mL Total Protein 7.6 (6.3-8.2) g/dL Albumin 4.4 (3.5-5.0) g/dL Globulin 3.2 (1.7-4.1) g/dL Albumin/Globulin Ratio 1.4 (1.0-2.8) Lipase 64 (23-300) U/L // Range/Units 03:45 WBC (4.5-11.0) X10^3/uL RBC (4.5-5.9) X10^6/uL Hgb (13.5-17.5) g/dL Hct (41-53) % MCV (80-100) fL MCH (26-34) PG MCHC (30-36) % RDW (11.6-14.8) % Plt Count (150-400) X10^3/uL Neut % (Auto) (50-75) % Lymph % (Auto) (25-40) % [place] % (Auto) (3-14) % Eos % (Auto) (2-4) % Baso % (Auto) (0-2) % Neut # (Auto) (3879-3686) /uL Lymph # (Auto) (0036-7711) /uL [place] # (Auto) (0-900) /uL Eos # (Auto) (0-450) /uL Baso # (Auto) (0-100) /uL PT (9.4-12.5) SECONDS INR (0.9-1.3) APTT (25.1-36.5) SECONDS Sodium (137-145) mmol/L Potassium (3.4-5.1) mmol/L Chloride (98-107) mmol/L Carbon Dioxide (22-32) mmol/L BUN (9-20) mg/dL Creatinine (0.66-1.25) mg/dL Estimated GFR (>60) mL/min BUN/Creatinine Ratio (6-22) Glucose (70-99) mg/dL Calcium (8.4-10.2) mg/dL Magnesium (1.6-2.3) mg/dL Total Bilirubin (0.2-1.3) mg/dL AST (17-59) IU/L ALT (<50) IU/L Alkaline Phosphatase (38-126) U/L Total Creatine Kinase (55-170) U/L Troponin I 10.300 H* (0.01-0.034) ng/mL NT-Pro-B Natriuret Pep (<450) pg/mL Total Protein (6.3-8.2) g/dL Albumin (3.5-5.0) g/dL Globulin (1.7-4.1) g/dL Albumin/Globulin Ratio (1.0-2.8) Lipase (23-300) U/L [facility] Narrative Medical decision making narrative: CC: Abnormal EKGs in his primary care doctor's office, chest pain 3 days ago Complicating co-morbidities: No current medical problems and no medications Data collected from: patient, Differential considered: STEMI, congestive heart failure, acute coronary syndrome, pneumothorax, pneumonia, musculoskeletal Exam documented above, pertinent findings include: Exam is remarkably benign. No clinical signs or symptoms of heart failure Lab Test results independently reviewed as above. Pertinent findings: CBC is unremarkable Chemistries show slight bump in creatinine from 1-1.27. AST is minimally elevated at 146 Troponin is significantly elevated at 9.07 BNP is slightly elevated at 4230 Lipase is unremarkable Urine does not show abnormality Independently reviewed EKG: Sinus rhythm at a rate of 63, ST elevation V2 345 and [address] depression Imaging studies independently reviewed: Chest x-ray shows no significant anomalies Consultations: Discussion with Dr. Lam, cardiology Treatments: Heparin drip is started, 300 mg of Plavix per Cardiology recommendation, he did receive aspirin Re-evaluations: Discussion: 85-year-old gentleman appearing much younger than stated age with chest pain for 3 days, anterior ST elevation with troponin positive at 9.0. Chest pain free at this time, mildly elevated troponin without secondary signs of congestive heart failure. Discussed with cardiology who recommended transfer to facility were heart catheterization can at least be considered. Discussed findings with the patient will begin to look for bed availability. We will begin with [facility] and continue bed search from there. <Shen Rubi, DO - Last Filed: 03/08/25 20:43> Lab Data Labs: Lab Results 03/08/25 03/08/25 03/09/25 Range/Units 16:53 18:23 00:00 WBC 9.5 (4.5-11.0) X10^3/uL RBC 4.21 L (4.5-5.9) X10^6/uL Hgb 14.4 (13.5-17.5) g/dL Hct 42.2 (41-53) % MCV 100.1 H (80-100) fL MCH 34.1 H (26-34) PG MCHC 34.1 (30-36) % RDW 14.5 (11.6-14.8) % Plt Count 207 (150-400) X10^3/uL Neut % (Auto) 75.1 H (50-75) % Lymph % (Auto) 13.1 L (25-40) % [place] % (Auto) 10.4 (3-14) % Eos % (Auto) 0.8 L (2-4) % Baso % (Auto) 0.6 (0-2) % Neut # (Auto) 7200 H (9976-5973) /uL Lymph # (Auto) 1300 (0383-6735) /uL [place] # (Auto) 1000 H (0-900) /uL Eos # (Auto) 100 (0-450) /uL Baso # (Auto) 100 (0-100) /uL PT 12.0 (9.4-12.5) SECONDS INR 1.1 (0.9-1.3) APTT 30 69 H D (25.1-36.5) SECONDS Sodium 137 (137-145) mmol/L Potassium 4.1 (3.4-5.1) mmol/L Chloride 102 (98-107) mmol/L Carbon Dioxide 27 (22-32) mmol/L BUN 20 (9-20) mg/dL Creatinine 1.27 H (0.66-1.25) mg/dL Estimated GFR 55 L (>60) mL/min BUN/Creatinine Ratio 15.7 (6-22) Glucose 119 H (70-99) mg/dL Calcium 9.4 (8.4-10.2) mg/dL Magnesium 2.0 (1.6-2.3) mg/dL Total Bilirubin 0.7 (0.2-1.3) mg/dL AST 146 H (17-59) IU/L ALT 42 (<50) IU/L Alkaline Phosphatase 79 (38-126) U/L Total Creatine Kinase 803 H (55-170) U/L Troponin I 9.070 H* 9.160 H* (0.01-0.034) ng/mL NT-Pro-B Natriuret Pep 4230 H (<450) pg/mL Total Protein 7.6 (6.3-8.2) g/dL Albumin 4.4 (3.5-5.0) g/dL Globulin 3.2 (1.7-4.1) g/dL Albumin/Globulin Ratio 1.4 (1.0-2.8) Lipase 64 (23-300) U/L // Range/Units 03:45 WBC (4.5-11.0) X10^3/uL RBC (4.5-5.9) X10^6/uL Hgb (13.5-17.5) g/dL Hct (41-53) % MCV (80-100) fL MCH (26-34) PG MCHC (30-36) % RDW (11.6-14.8) % Plt Count (150-400) X10^3/uL Neut % (Auto) (50-75) % Lymph % (Auto) (25-40) % [place] % (Auto) (3-14) % Eos % (Auto) (2-4) % Baso % (Auto) (0-2) % Neut # (Auto) (4925-9324) /uL Lymph # (Auto) (9593-4497) /uL [place] # (Auto) (0-900) /uL Eos # (Auto) (0-450) /uL Baso # (Auto) (0-100) /uL PT (9.4-12.5) SECONDS INR (0.9-1.3) APTT (25.1-36.5) SECONDS Sodium (137-145) mmol/L Potassium (3.4-5.1) mmol/L Chloride (98-107) mmol/L Carbon Dioxide (22-32) mmol/L BUN (9-20) mg/dL Creatinine (0.66-1.25) mg/dL Estimated GFR (>60) mL/min BUN/Creatinine Ratio (6-22) Glucose (70-99) mg/dL Calcium (8.4-10.2) mg/dL Magnesium (1.6-2.3) mg/dL Total Bilirubin (0.2-1.3) mg/dL AST (17-59) IU/L ALT (<50) IU/L Alkaline Phosphatase (38-126) U/L Total Creatine Kinase (55-170) U/L Troponin I 10.300 H* (0.01-0.034) ng/mL NT-Pro-B Natriuret Pep (<450) pg/mL Total Protein (6.3-8.2) g/dL Albumin (3.5-5.0) g/dL Globulin (1.7-4.1) g/dL Albumin/Globulin Ratio (1.0-2.8) Lipase (23-300) U/L MDM Narrative Medical decision making narrative: CC: Abnormal EKGs in his primary care doctor's office, chest pain 3 days ago Complicating co-morbidities: No current medical problems and no medications Data collected from: patient, Differential considered: STEMI, congestive heart failure, acute coronary syndrome, pneumothorax, pneumonia, musculoskeletal Exam documented above, pertinent findings include: Exam is remarkably benign. No clinical signs or symptoms of heart failure Lab Test results independently reviewed as above. Pertinent findings: CBC is unremarkable Chemistries show slight bump in creatinine from 1-1.27. AST is minimally elevated at 146 Troponin is significantly elevated at 9.07 BNP is slightly elevated at 4230 Lipase is unremarkable Urine does not show abnormality Independently reviewed EKG: Sinus rhythm at a rate of 63, ST elevation V2 345 and [address] depression Imaging studies independently reviewed: Chest x-ray shows no significant anomalies Consultations: Discussion with Dr. Lam, cardiology Treatments: Heparin drip is started, 300 mg of Plavix per Cardiology recommendation, he did receive aspirin Re-evaluations: Discussion: 85-year-old gentleman appearing much younger than stated age with chest pain for 3 days, anterior ST elevation with troponin positive at 9.0. Chest pain free at this time, mildly elevated troponin without secondary signs of congestive heart failure. Discussed with cardiology who recommended transfer to facility were heart catheterization can at least be considered. Discussed findings with the patient will begin to look for bed availability. We will begin with [facility] and continue bed search from there. Case discussed with Dr. Primitivo ren md who asked that patient be transferred and admitted to hospitalist service case discussed with hospitalist who has graciously accepted patient for transfer. Critical Care Time <Shen Rubi, DO - Last Filed: 03/08/25 20:43> Critical Care Time Critical Care Time: Yes Total Critical Care Time: 45 Attestation: Case discussed Dr. Cat at sign out pending final disposition for which I have confirmed and spoken to protective service specialist at this time who asked that patient be admitted to hospitalist service. Patient has received aspirin Plavix and is on a heparin drip at this time Discharge Plan Departure Patient Disposition: [facility] Clinical Impression: ST elevation myocardial infarction (STEMI) Qualifiers: Involved coronary artery: unspecified coronary artery Qualified Code(s): I21.3 - ST elevation (STEMI) myocardial infarction of unspecified site
[2025-03-08 17:14] LABS: INR 1.1 (0.9-1.3)
[2025-03-08 17:16] LABS: PTT Partial Thromboplastin Tim 30 SECONDS (25.1-36.5)
[2025-03-08 17:17] LABS: Alanine Aminotransferase 42 IU/L (<50); Albumin 4.4 g/dL (3.5-5.0); Albumin Globulin Ratio 1.4 (1.0-2.8); Alkaline Phosphatase 79 U/L (38-126); Aspartate Aminotransferase 146 IU/L (17-59); BUN Creatinine Ratio 15.7 (6-22); Bilirubin Total 0.7 mg/dL (0.2-1.3); Blood Urea Nitrogen 20 mg/dL (9-20); Calcium 9.4 mg/dL (8.4-10.2); Carbon Dioxide 27 mmol/L (22-32); Chloride 102 mmol/L (98-107); Creatine Kinase 803 U/L (55-170); Estimated Glomerular Filt Rate 55 mL/min (>60); Globulin 3.2 g/dL (1.7-4.1); Glucose 119 mg/dL (70-99); HEMOLYSIS < 15 (0-50); Lipase 64 U/L (23-300); Potassium 4.1 mmol/L (3.4-5.1); Sodium 137 mmol/L (137-145); Total Protein 7.6 g/dL (6.3-8.2)
[2025-03-08 17:29] LABS: NT-proBNP (BNP-Adult 18+) 4230 pg/mL (<450)
[2025-03-08] MEDS: HEPARIN 5,000 UNIT/ML VIAL 5000 UNIT IV (17:47)
[2025-03-08] MEDS: HEPARIN DRIP 25,000 UNIT/500 ML IV.SOLN 18.615 UNIT IV (17:48)
--- NOTE | 2025-03-08 19:00 | PC.NURSE ---
pt on monitor with SR with occasional PVCs noted with ST elevation
[2025-03-08] MEDS: CLOPIDOGREL 75 MG TABLET 300 MG PO (19:04)
[2025-03-09] VITALS (11 sets, daily range): BP systolic 103–130; BP diastolic 56–87; PULSE 61–92; RESP 11–12; O2SAT 91–95
[2025-03-09 00:25] LABS: PTT Partial Thromboplastin Tim 69 SECONDS (25.1-36.5)
--- NOTE | 2025-03-09 03:41 | EKG_ITS ---
[address] [address] [place] [address] Test Date: 2025-03-09 Pat Name: Sanford Arcos Department: [facility] Room: Gender: Male Tutoring Clinician: JOSE : 1940 Requested By: Order Number: [id number] Reading MD: Shen Chowdary MD Measurements Intervals [place] Rate: 71 P: -2 CA: 186 QRS: -53 QRSD: 88 T: 49 QT: 360 QTc: 391 Interpretive Statements Sinus rhythm with occasional premature ventricular complexes Left axis deviation Low voltage QRS Cannot rule out Anteroseptal infarct , age undetermined NO SIGNIFICANT CHANGE FROM PRIOR TRACING Electronically Signed On 03-09-2025 9:42:22 PDT by Shen Chowdary MD
--- NOTE | 2025-03-26 15:37 | PC.NURSE ---
late entry per RN Heparin drip was infusing at the time of transfer to another facility
== END 2025-03-09 05:00 | disposition short-term general hospital (02) ==
PROVIDERS: Emergency Medicine; Emergency Provider Family Medicine
DX: I21.3 ST elevation (STEMI) myocardial infarction of unspecified site (principal)
CPT/HCPCS: 71045; 80053; 82550; 83690; 83735; 83880; 84484; 85025; 85610; 85730; 93005; 93010; 96365; 96366; 96375; 99284; 99291; J1644

== ENCOUNTER → 2025-08-26 06:57 | Outpatient (CLI) | payer MEDICARE, OTHER, SELFPAY ==
[2025-08-26 07:46] LABS: Hematocrit 38.3 % (41-53); Hemoglobin 13.1 g/dL (13.5-17.5); Mean Corpuscular HGB Conc 34.2 % (30-36); Mean Corpuscular Hemoglobin 34.1 PG (26-34); Mean Corpuscular Volume 99.6 fL (80-100); Platelet Count 223 X10^3/uL (150-400)
[2025-08-26 07:47] LABS: Blood Urea Nitrogen 27 mg/dL (9-20); Calcium 9.3 mg/dL (8.4-10.2); Carbon Dioxide 22 mmol/L (22-32); Chloride 107 mmol/L (98-107); Cholesterol 117 mg/dL (140-199); Estimated Glomerular Filt Rate 48 mL/min (>60); Glucose 121 mg/dL (70-99); HDL Cholesterol 52 mg/dL (40-60); HEMOLYSIS < 15 (0-50); Potassium 4.9 mmol/L (3.4-5.1); Sodium 138 mmol/L (137-145); Triglycerides 96 mg/dL (35-150)
== END ==
PROVIDERS: PCP Family Medicine; Referring Provider Family Medicine; Visit Provider Internal Medicine Cardiovascular Disease
DX: I25.10 Atherosclerotic heart disease of native coronary artery without angina pectoris (principal)
CPT/HCPCS: 36415; 80048; 80061; 85027